=== PATIENT | female | born 1995 | race Caucasian/White ===

== ENCOUNTER 2021-01-03 13:47 | Emergency (ER) | payer MEDICAID ==
[~2021-01-03] VITALS: Ht 177.8 cm; Wt 75.0 kg
--- NOTE | 2021-01-03 14:49 | ED Abdominal Pain ---
General Chief Complaint: Abdominal/GI Problems Stated Complaint: ABD PAIN Source of Information: Patient, Family () Exam Limitations: No Limitations (LEESA MURPHY STUDENT) History of Present Illness Date Seen by Provider: Jan 03, 2021 Time Seen by Provider: 14:20 Initial Comments Pt presents to ED with at bedside with complaint of abd pain. They report moving to the area a month ago. She states that it began 2 weeks ago, rates it 10/10 periumbilical, denies radiation, alleviated by massages by her . Denies prior similar episodes of abd pain. She states she was seen at a clinic 2 weeks ago when the symptoms started, at the time urine was negative. LMP was about 2 months ago in late October. vaginal delivery, and she reports having D&C after delivery due to retained placenta. She has had i ntermittent nausea, no vomiting, and reports an episode of blood streaked loose stool yesterday. Denies chest pain, SOB. Timing/Duration: Getting Worse, Other (2 weeks) Severity/Quality: Moderate, Cramping Location: Periumbilical Radiation: No Radiation Activities at Onset: None Associated Symptoms: No Chest Pain, No Fever/Chills; Headache, Nausea/Vomiting; No Shortness of Air (LEESA MURPHY STUDENT) Allergies and Home Medications Allergies Coded Allergies: No Known Drug Allergies (Unverified , 01/03/21) Patient Home Medication List Home Medication List Reviewed: Yes (LEESA MURPHY STUDENT) Review of Systems Review of Systems Constitutional: No chills, No fever EENTM: No Blurred Vision, No Eye Pain, No Ear Pain, No Mouth Pain Respiratory: Denies Cough, Denies Shortness of Air Cardiovascular: Denies Chest Pain, Denies Edema, Denies Lightheadedness Gastrointestinal: Denies Abdomen Distended; Abdominal Pain (10/10 periumbilical), Blood Streaked Stools (1x episode yesterday); Denies Constipated; Diarrhea, Nausea; Denies Poor Appetite Genitourinary: Denies Burning, Denies Frequency, Denies Hematuria Musculoskeletal: No back pain, No joint pain Skin: No change in color, No change in hair/nails Psychiatric/Neurological: Headache; Denies Numbness, Denies Paresthesia, Denies Tingling (LEESA MURPHY STUDENT) All Other Systems Reviewed Negative Unless Noted: Yes (LEESA MURPHY STUDENT) Past Dllfofi-Zuxyur-Ilmcqh Hx Patient Social History Tobacco Use?: No Substance use?: No Alcohol Use?: No (LEESA MURPHY STUDENT) Physical Exam Vital Signs Vital Signs - First Documented 01/03/21 14:10 Temp 36.7 Pulse 83 Resp 16 B/P (MAP) 114/72 (86) Pulse Ox 99 O2 Delivery Room Air (ANTON GERMAIN) Vital Signs Capillary Refill : (LEESA MURPHY STUDENT) Height/Weight/BMI Height: '" Weight: lbs. oz. kg; BMI Method: General Appearance: WD/WN, no apparent distress HEENT: PERRL/EOMI, normal ENT inspection, TMs normal, pharynx normal Neck: non-tender, full range of motion, supple, normal inspection Respiratory: chest non-tender, lungs clear, normal breath sounds, no res piratory distress, no accessory muscle use Cardiovascular: normal peripheral pulses, regular rate, rhythm, no murmur Peripheral Pulses: 2+ Dorsalis Pedis (R), 2+ Left Dors-Pedis (L) Gastrointestinal: normal bowel sounds, soft; No distended, No guarding, No rebound; tenderness (mild tenderness to deep palpation periumbilical) Rectal: deferred Extremities: normal range of motion, non-tender, normal inspection, no pedal edema, normal capillary refill Back: normal inspection, no CVA tenderness, no vertebral tenderness Neurologic/Psychiatric: no motor/sensory deficits, alert, normal mood/affect, oriented x 3 Skin: normal color, warm/dry Lymphatic: no adenopathy (LEESA MURPHY STUDENT) Progress/Results/Core Measures Results/Orders Lab Results Laboratory Tests Test 01/03/21 15:09 Range/Units White Blood Count 7.3 4.3-11.0 10^3/uL Red Blood Count 4.50 3.80-5.11 10^6/uL Hemoglobin 10.6 L 11.5-16.0 g/dL Hematocrit 34 L 35-52 % Mean Corpuscular Volume 76 L 80-99 fL Mean Corpuscular Hemoglobin 24 L 25-34 pg Mean Corpuscular Hemoglobin Concent 31 L 32-36 g/dL Red Cell Distribution Width 15.4 H 10.0-14.5 % Platelet Count 324 130-400 10^3/uL Mean Platelet Volume 10.2 9.0-12.2 fL Immature Granulocyte % (Auto) 0 % Neutrophils (%) (Auto) 62 42-75 % Lymphocytes (%) (Auto) 28 12-44 % Monocytes (%) (Auto) 8 0-12 % Eosinophils (%) (Auto) 1 0-10 % Basophils (%) (Auto) 1 0-10 % Neutrophils # (Auto) 4.5 1.8-7.8 X 10^3 Lymphocytes # (Auto) 2.0 1.0-4.0 X 10^3 Monocytes # (Auto) 0.6 0.0-1.0 X 10^3 Eosinophils # (Auto) 0.1 0.0-0.3 10^3/uL Basophils # (Auto) 0.0 0.0-0.1 10^3/uL Immature Granulocyte # (Auto) 0.0 0.0-0.1 10^3/uL Sodium Level 142 135-145 MMOL/L Potassium Level 3.6 3.6-5.0 MMOL/L Chloride Level 107 98-107 MMOL/L Carbon Dioxide Level 22 21-32 MMOL/L Anion Gap 13 5-14 MMOL/L Blood Urea Nitrogen 7 7-18 MG/DL Creatinine 0.84 0.60-1.30 MG/DL Estimat Glomerular Filtration Rate 84 BUN/Creatinine Ratio 8 Glucose Level 96 70-105 MG/DL Calcium Level 9.2 8.5-10.1 MG/DL Corrected Calcium 9.0 8.5-10.1 MG/DL Total Bilirubin 0.4 0.1-1.0 MG/DL Aspartate Amino Transf (AST/SGOT) 20 5-34 U/L Alanine Aminotransferase (ALT/SGPT) 18 0-55 U/L Alkaline Phosphatase 68 40-136 U/L C-Reactive Protein High Sensitivity 0.56 H 0.00-0.50 MG/DL Total Protein 8.1 6.4-8.2 GM/DL Albumin 4.3 3.2-4.5 GM/DL Lipase 13 8-78 U/L Serum Test, Qualitative NEGATIVE NEGATIVE Influenza Type A (RT-PCR) Not Detected Not Detecte Influenza Type B (RT-PCR) Not Detected Not Detecte SARS-CoV-2 RNA (RT-PCR) Not Detected Not Detecte (ANTON GERMAIN) My Orders Orders - ANTON GERMAIN Ua Culture If Indicated (01/03/21 14:21) Hcg,Qualitative Serum (01/03/21 14:45) Cbc With Automated Diff (01/03/21 14:45) Comprehensive Metabolic Panel (01/03/21 14:45) Hs C Reactive Protein (01/03/21 14:45) Lipase (01/03/21 14:45) Ed Iv/Invasive Line Start (01/03/21 14:57) Ns Iv 1000 Ml (Sodium Chloride 0.9%) (01/03/21 15:00) Lidocaine 2% Viscous 15 Ml (Xylocaine Vi (01/03/21 15:00) Famotidine Tablet (Pepcid Tablet) (01/03/21 14:57) Antacid Suspension (Mylanta Suspension (01/03/21 15:00) Covid 19 Inhouse Test (01/03/21 14:57) Influenza A And B By Pcr (01/03/21 14:57) (ANTON GERMAIN) Medications Given in ED Current Medications Medications Dose Ordered Sig/Theresa Route Start Time Stop Time Status Last Admin Dose Admin Al Hydrox/Mg Hydrox/Simethicone 30 ml ONCE ONCE PO 01/03/21 15:00 01/03/21 15:01 DC 01/03/21 15:15 30 ML Lidocaine HCl 15 ml ONCE ONCE PO 01/03/21 15:00 01/03/21 15:01 DC 01/03/21 15:15 15 ML (ANTON GERMAIN) Vital Signs/I&O 01/03/21 14:10 Temp 36.7 Pulse 83 Resp 16 B/P (MAP) 114/72 (86) Pulse Ox 99 O2 Delivery Room Air (ANTON GERMAIN) Progress Progress Note : Time: 16:09 Progress Note I attest that I saw this patient alongside the medical student and agree with his documented history, physical exam and review of systems except as otherwise noted. We discussed her labs and pertinent negatives for inflammatory findings, Covid with the patient. She was given a GI cocktail and Pepcid which brought her pain down from a 10 to a 5 and she is comfortable, calm and smiling in bed. We suggest that she follow-up with a primary care doctor and pursue a course of a ntigastritis medicines including Carafate, omeprazole and loperamide for the diarrhea. She may have some kind of an irritable or inflammatory bowel. Because of her ongoing abdominal discomfort I suggested that an ultrasound of her pelvis may be [place] as well and can be set up with your primary care doctor. We will give her a referral to general surgery to discuss her umbilical pain and gastritis. The patient is okay with this plan. Return precautions were discussed. (ANTON GERMAIN) Departure Impression Primary Impression: Gastritis Qualified Codes: K29.00 - Acute gastritis without bleeding Disposition: HOME, SELF-CARE Condition: Stable Departure-Patient Inst. Decision time for Depature: 16:09 (ANTON GERMAIN) Referrals: JAZ BOLAÑOS MD,LOCAL PHYSICIAN (PCP) Primary Care Physician Patient Instructions: Gastritis (DC), LOCAL PHYSICIAN LIST Add. Discharge Instructions: Since you had improvement with the medications that target the lining of your stomach were going to put you on these medicines for the next couple weeks to help improve your abdominal pain. Carafate half an hour before meals and at bedtime for the next 2 weeks to prot ect the lining of your stomach. Omeprazole 40 mg a day for the next 4 weeks to reduce the acid levels in your stomach. Maalox, Mylanta, Tums, Rolaids etc. as necessary for breakthrough pain in your stomach. Call Dr. Bolaños, general surgery and request a follow-up appointment in the next 2 to 4 weeks to see if you need further management of your symptoms such as endoscopy, testing for H. pylori etc. Follow-up with a primary care doctor and establish care to help manage your symptoms. Imodium/loperamide 2 tablets the next time you have loose, watery diarrhea. Take 1 tablet every 4 hours afterwards if you have another loose, watery stool. Return to the ER promptly if you have a fever above 102.5, intractable pain, vomiting or you become very dehydrated. Tylenol and simethicone are okay for abdominal pain. Avoid ibuprofen, Aleve, naproxen, Motrin for now. These may slow the healing of your stomach lining. If you have nausea or vomiting you can use the ondansetron under the tongue once every 6 hours. All discharge instructions reviewed with patient and/or family. Voiced understanding. Scripts Omeprazole (Omeprazole) 40 Mg Capsule. 40 MG PO DAILY for 30 Days, #30 CAP 0 Refills Prov: ANTON GERMAIN 01/03/21 Sucralfate (Carafate) 1 Gm Tablet 1 GM PO QIDACHS for 14 Days, #56 TAB 0 Refills Prov: ANTON GERMAIN 01/03/21 Ondansetron (Ondansetron Odt) 4 Mg Tab.rapdis 4 MG PO Q6H PRN for NAUSEA/VOMITING, #8 TAB 0 Refills Prov: ANTON GERMAIN 01/03/21 Copy Copies To 1: JAZ BOLAÑOS MD,[facility] MED STUDENT Jan 03, 2021 14:49 ANTON GERMAIN Jan 03, 2021 16:15
[2021-01-03] MEDS ORDERED: FAMOTIDINE 20 MG (PEPCID) TABLET PO STA (14:57)
[2021-01-03] MEDS ORDERED: LIDOCAINE 2% VISCOUS 15 ML UDC PO ONE (15:00)
[2021-01-03] MEDS ORDERED: ANTACID SUSP 30 ML UDC (MYLANTA) PO ONE (15:00)
[2021-01-03] MEDS ORDERED: NS IV 1000 ML 1,000 ML IV SCH (15:00)
[2021-01-03 15:16] LABS: BASOPHILS % (AUTO) 1 % (0-10); EOSINOPHILS # (AUTO) 0.1 10^3/uL (0.0-0.3); EOSINOPHILS % (AUTO) 1 % (0-10); HEMATOCRIT 34 % (35-52); HEMOGLOBIN 10.6 g/dL (11.5-16.0); LYMPHOCYTES % (AUTO) 28 % (12-44); MEAN CORPUSCULAR HEMOGLOBIN 24 pg (25-34); MEAN CORPUSCULAR HGB CONC 31 g/dL (32-36); MEAN CORPUSCULAR VOLUME 76 fL (80-99); MEAN PLATELET VOLUME 10.2 fL (9.0-12.2); MONOCYTES # (AUTO) 0.6 X 10^3 (0.0-1.0); MONOCYTES % (AUTO) 8 % (0-12); NEUTROPHILS # (AUTO) 4.5 X 10^3 (1.8-7.8); NEUTROPHILS % (AUTO) 62 % (42-75); PLATELET COUNT 324 10^3/uL (130-400); WHITE BLOOD COUNT 7.3 10^3/uL (4.3-11.0)
[2021-01-03 15:26] LABS: ALBUMIN 4.3 GM/DL (3.2-4.5); POTASSIUM 3.6 MMOL/L (3.6-5.0)
[2021-01-03 15:27] LABS: CALCIUM 9.2 MG/DL (8.5-10.1)
[2021-01-03 15:29] LABS: TOTAL PROTEIN 8.1 GM/DL (6.4-8.2)
[2021-01-03 15:30] LABS: BILIRUBIN,TOTAL 0.4 MG/DL (0.1-1.0)
[2021-01-03 15:32] LABS: CREATININE SERUM 0.84 MG/DL (0.60-1.30)
[2021-01-03] MEDS ORDERED: SUCR1TAB36 PO (16:17)
[2021-01-03] MEDS ORDERED: ONDA4TAB11 PO (16:17)
[2021-01-03] MEDS ORDERED: OMEP40CA6 PO (16:17)
[2021-01-03 16:31] VITALS: BP 102/62
== END 2021-01-03 16:25 | disposition home or self-care (01) ==
LOC: ER 13:50
DX: K29.70 Gastritis, unspecified, without bleeding (principal); Z20.822 Contact with and (suspected) exposure to COVID-19; Z32.02 Encounter for pregnancy test, result negative
CPT/HCPCS: 36415; 80053; 83690; 84703; 85025; 86141; 87636

== ENCOUNTER → 2021-01-12 | Outpatient (CLI) | payer MEDICAID ==
[~2021-01-12] MED LIST: OMEP40CA6 PO; ONDA4TAB11 PO; SUCR1TAB36 PO
--- NOTE | 2021-01-12 11:25 | Diagnostic Imaging Report ---
EXAMINATION: Abdomen 1 view. HISTORY: ABDOMINAL PAIN COMPARISON: None available. FINDINGS: There is a moderate amount of gas and stool throughout the colon. Nonobstructive bowel gas pattern. No radiopaque foreign body. The lung bases are clear. The osseous structures are intact. IMPRESSION: Moderate stool burden without other acute abnormality in the abdomen. Dictated by: Dictated on workstation # [id number]
== END ==
LOC: RAD
PROVIDERS: ATTEND Nurse Practitioner Family
DX: R10.9 Unspecified abdominal pain (principal)
CPT/HCPCS: 74018

== ENCOUNTER → 2021-01-28 | Outpatient (CLI) | payer MEDICAID ==
[~2021-01-28] MED LIST changes: +HOLD METFORMIN - RECEIVED CONTRAST 20 ML VIAL IV SCH; +IOHEXOL 350 MG/ML 100 ML (OMNIPAQUE 350) VIAL IV ONE; +NS 100 ML (IVPB) BAG IV ONE
--- NOTE | 2021-01-28 15:25 | Diagnostic Imaging Report ---
PROCEDURE: CT abdomen and pelvis with contrast. TECHNIQUE: Multiple contiguous axial images were obtained through the abdomen and pelvis after administration of intravenous contrast. Auto Exposure Controls were utilized during the CT exam to meet ALARA standards for radiation dose reduction. All CT scans use one or more of the following dose optimizing techniques: automated exposure control, MA and/or KvP adjustment based on patient size and exam type or iterative reconstruction. INDICATION: Abdominal pain for three months. COMPARISON: No prior studies are available for comparison. FINDINGS: The lung bases are clear. The liver and gallbladder are unremarkable. There is no biliary ductal dilatation. The pancreas and spleen are unremarkable. No adrenal mass is detected. Kidneys are unremarkable. Aorta is nonaneurysmal. The small and large bowel loops are normal in caliber. There is no obstruction. No free fluid or fluid collection is seen. The bladder and uterus are unremarkable. No inflammatory changes are detected. IMPRESSION: Unremarkable CT of the abdomen and pelvis with contrast. No acute feature is detected. Dictated by: Dictated on workstation # [id number]
== END ==
LOC: RAD 13:15
PROVIDERS: ATTEND Surgery
DX: R10.9 Unspecified abdominal pain (principal)
CPT/HCPCS: 74177

== ENCOUNTER 2021-03-05 20:58 | Emergency (ER) | payer MEDICAID ==
[~2021-03-05] VITALS: Ht 70 cm; Wt 83.0 kg
[~2021-03-05 20:58] MED LIST changes: -HOLD METFORMIN - RECEIVED CONTRAST 20 ML VIAL IV SCH; -IOHEXOL 350 MG/ML 100 ML (OMNIPAQUE 350) VIAL IV ONE; -NS 100 ML (IVPB) BAG IV ONE
--- NOTE | 2021-03-05 21:27 | ED Headache ---
General Chief Complaint: Head/Cervical Problems Stated Complaint: HEADACHE Nursing Triage Note: Pt arrives via POV from home with c/o headache; onset one week. Pt reports nausea without vomiting. Has been taking tylenol without relief. Source: patient Exam Limitations: no limitations History of Present Illness Date Seen by Provider: Mar 05, 2021 Time Seen by Provider: 21:24 Initial Comments Patient is a 25-year-old female presents ED with a frontal headache. Head pain since last week. Appears to be worse with looking at her phone or bright lights. She reports nausea without vomiting. Denies history of similar headaches in the past. Patient took Tylenol at home without much improvement. Denies of any visual changes, unilateral muscle weakness. Increasing worsening head pain, recent URI, fever, drug use. Patient would like to be checked for . Last menstrual cycle last month. Patient requesting IV medication at this time. Denies of any abdominal pain, vaginal bleeding, dysuria, chest pain, cough Allergies and Home Medications Allergies Coded Allergies: No Known Drug Allergies (Unverified , 01/03/21) Patient Home Medication List Home Medication List Reviewed: Yes Omeprazole (Omeprazole) 40 Mg Capsule.dr, 40 MG PO DAILY Prescribed by: ANTON GERMAIN on 01/03/211616 Ondansetron (Ondansetron Odt) 4 Mg Tab.rapdis, 4 MG PO Q6H PRN for NAUSEA/VOMITING Prescribed by: ANTON GERMAIN on 01/03/211616 Sucralfate (Carafate) 1 Gm Tablet, 1 GM PO QIDACHS Prescribed by: ANTON GERMAIN on 01/03/211616 Review of Systems Review of Systems Constitutional: no symptoms reported, see HPI Eyes: No Symptoms Reported, See HPI, Photophobia Ears, Nose, Mouth, Throat: no symptoms reported Respiratory: No cough, No dyspnea on exertion Cardiovascular: no symptoms reported Gastrointestinal: No abdominal pain, No constipation, No diarrhea Genitourinary: see HPI Musculoskeletal: No no symptoms reported Psychiatric/Neurological: Headache Past Ggocazy-Zyneax-Kwmxui Hx Patient Social History Tobacco Use?: No Smoking Status: Never a Smoker Use of E-Cig and/or Vaping dev: No Use of E-Cig and/or Vaping Mike: Never a User Substance use?: No Alcohol Use?: No Pt feels they are or have been: No Physical Exam Vital Signs Vital Signs - First Documented 03/05/21 21:11 Temp 36.3 Pulse 72 Resp 18 B/P (MAP) 115/41 (65) Pulse Ox 100 O2 Delivery Room Air Capillary Refill : Less Than 3 Seconds Height, Weight, BMI Height: '" Weight: lbs. oz. kg; 169.00 BMI Method: General Appearance: No WD/WN, No no apparent distress HEENT: PERRL/EOMI, normal ENT inspection, TMs normal, pharynx normal Neck: non-tender, full range of motion, supple, normal inspection Cardiovascular: regular rate, rhythm, no edema, no gallop, no JVD Respiratory: chest non-tender, lungs clear, normal breath sounds, no respiratory distress Gastrointestinal: normal bowel sounds, non tender Extremities: normal range of motion, non-tender, normal inspection Crainal Nerves: normal speech Coordination/Gait: normal gait Motor/Sensory: no motor deficit, no sensory deficit Skin: normal color, warm/dry Progress/Results/Core Measures Results/Orders Lab Results Laboratory Tests Test 03/05/21 22:13 Range/Units Urine Test POSITIVE NEGATIVE My Orders Orders - KRYSTA JARRELL Ua Culture If Indicated (03/05/21 21:21) Hcg,Qualitative Urine (03/05/21 21:21) Prochlorperazine Injection (Compazine In (03/05/21 21:30) Ketorolac Injection (Toradol Injection) (03/05/21 21:30) Diphenhydramine Injection (Benadryl Inje (03/05/21 21:30) Ns Iv 1000 Ml (Sodium Chloride 0.9%) (03/05/21 21:30) Ed Iv/Invasive Line Start (03/05/21 21:43) Diphenhydramine Injection (Benadryl Inje (03/05/21 22:00) Medications Given in ED Current Medications Medications Dose Ordered Sig/Theresa Route Start Time Stop Time Status Last Admin Dose Admin Diphenhydramine HCl 25 mg ONCE ONCE IVP 03/05/21 22:00 03/05/21 22:01 DC 03/05/21 21:56 25 MG Ketorolac Tromethamine 30 mg ONCE ONCE IVP 03/05/21 21:30 03/05/21 21:31 DC 03/05/21 21:47 30 MG Prochlorperazine Edisylate 10 mg ONCE ONCE IV 03/05/21 21:30 03/05/21 21:31 DC 03/05/21 21:47 10 MG Vital Signs/I&O 03/05/21 21:11 Temp 36.3 Pulse 72 Resp 18 B/P (MAP) 115/41 (65) Pulse Ox 100 O2 Delivery Room Air Blood Pressure Mean: 65 Departure Communication (Admissions) Patient presents ED with head pain. Frontal headache without worsening pain. Appears to occur with lights. Patient without any red flag neurological findings. Vital signs stable. She has no current complaints. Patient was given IV with migraine cocktail with resolution of pain. She was requesting test. Last menstrual cycle possibly last week. Positive urine . She would be considered G2, P1. She has no abdominal pain, vaginal bleeding. Denies any urinary symptoms. Recommend RECOVERY OPERATOR outpatient follow-up. Recommend Tylenol and care. If any developing abdominal pain, vaginal bleeding to return back to ED for further evaluation Impression Primary Impression: Headache Additional Impression: Disposition: 01 HOME, SELF-CARE Condition: Improved Departure-Patient Inst. Decision time for Depature: 22:29 Referrals: STEPHANIE CHARLES,LOCAL PHYSICIAN (PCP) Primary Care Physician Patient Instructions: Headache, Adult, Care Add. Discharge Instructions: Recommend prenatals. Need to follow-up with RECOVERY OPERATOR for verification and further lab work. If any developing abdominal pain, vaginal bleeding to return back to ED. All discharge instructions reviewed with patient and/or family. Voiced understanding. KRYSTA JARRELL Mar 05, 2021 21:27
[2021-03-05] MEDS ORDERED: KETOROLAC 30 MG/ML VIAL IVP ONE (21:30)
[2021-03-05] MEDS ORDERED: NS IV 1000 ML 1,000 ML IV SCH (21:30)
[2021-03-05] MEDS ORDERED: PROCHLORPERAZINE 10 MG/2ML INJ (COMPAZINE) IV ONE (21:30)
[2021-03-05] MEDS ORDERED: diphenhydrAMINE 50 MG/ML INJ (BENADRYL) IM ONE (21:30)
[2021-03-05] MEDS ORDERED: diphenhydrAMINE 50 MG/ML INJ (BENADRYL) IVP ONE (22:00)
[2021-03-05 22:39] VITALS: BP 118/52
== END 2021-03-05 22:41 | disposition home or self-care (01) ==
LOC: EDUNIT# 20:58 → ER 21:03
DX: Z32.01 Encounter for pregnancy test, result positive (principal); R51.9 Headache, unspecified
CPT/HCPCS: 84703

== ENCOUNTER 2021-03-13 11:06 | Emergency (ER) | payer MEDICAID ==
[~2021-03-13] VITALS: Ht 177 cm; Wt 70.7 kg
[2021-03-13] MEDS ORDERED: NS IV 1000 ML 1,000 ML IV SCH ×2 (11:30→13:00)
--- NOTE | 2021-03-13 11:40 | ED General ---
General Chief Complaint: Abdominal/GI Problems Stated Complaint: NV 5 WEEKS PREG Nursing Triage Note: Pt ambulatory to ER, reports approx 5 weeks , second . Pt reports found out she was approx 1 week ago, c/o n/v since then. Pt believes she may be dehydrated. (RHIANNON BYRNES) History of Present Illness Date Seen by Provider: Mar 13, 2021 Time Seen by Provider: 11:31 Initial Comments 25 Y/O female presents to the ER with complaints of N/V that have been going on for the past week. Patient states that she hasn't been able to keep down fluids or food very well for the past week. States she probably had an apple in the past 3 days and that she feels very weak. Patient has established care with Dr. Briseno for this but has not seen her yet. She was at Dr. Briseno's office earlier today to get her initial lab draw done and the office told her to come to the ER if she felt like she needed fluids. Patient states that smelling food, drinking fluid, or moving too much make her nausea worse. She reports dizziness when going from a lying to standing to position. She hasn't tried anything yet to make it better, but that when she got fluids last week it made her feel much better. Patient states she feels weak and is requesting fluids as she had this happen during her first . Her first born child is 10 months old. Patient denies abnormal vaginal discharge, bleeding, cramping, GI pain, SOB. Patient does state she is still having migraines intermittently and that when she has them she feels feverish. Timing/Duration: 1 Week Severity: Mild Modifying Factors: improves with Eating, improves with Movement Associated Systoms: No Cough; Headaches, Nausea/Vomiting; No Shortness of Air; Weakness (RHIANNON BYRNES) Allergies and Home Medications Allergies Coded Allergies: No Known Drug Allergies (Unverified , 01/03/21) Patient Home Medication List Home Medication List Reviewed: Yes (CHARY YI MD) Cephalexin (Cephalexin) 500 Mg Tablet, 500 MG PO TID Prescribed by: CHARY YI on 03/13/21 1418 Omeprazole (Omeprazole) 40 Mg Capsule., 40 MG PO DAILY Prescribed by: ANTON GERMAIN on 8/14/21 1617 Ondansetron (Ondansetron Odt) 4 Mg Tab.rapdis, 4 MG PO Q6H PRN for NAUSEA/VOMITING Prescribed by: ANTON GERMAIN on 01/03/211616 Sucralfate (Carafate) 1 Gm Tablet, 1 GM PO QIDACHS Prescribed by: ANTON GERMAIN on 01/03/211616 Review of Systems Review of Systems Constitutional: fever (when having migraine) Respiratory: No cough, No short of breath Cardiovascular: No chest pain, No palpitations Gastrointestinal: No abdominal pain, No constipation, No diarrhea; loss of appetite, nausea, vomiting Genitourinary: No decreased output, No discharge, No dysuria : Yes Musculoskeletal: no symptoms reported Skin: no symptoms reported Psychiatric/Neurological: Headache (migraine) (RHIANNON BYRNES) Past Cyqnzvc-Hxbsat-Iuubhs Hx Patient Social History Tobacco Use?: No Use of E-Cig and/or Vaping dev: No Substance use?: No Alcohol Use?: No Pt feels they are or have been: No (RHIANNON BYRNES) Past Medical History Neurological: Yes Headaches /Migraines Last Menstrual Period: Jan 31, 2021 Hx : 2 Hx Para: 1 (RHIANNON BYRNES) Physical Exam Vital Signs Vital Signs - First Documented 03/13/21 11:13 Temp 36.0 Pulse 63 Resp 18 B/P (MAP) 115/70 (85) Pulse Ox 100 O2 Delivery Room Air (CHARY YI MD) Vital Signs Capillary Refill : (RHIANNON BYRNES) Height, Weight, BMI Height: '" Weight: lbs. oz. kg; 22.00 BMI Method: General Appearance: WD/WN, Anxious Neck: Normal Inspection, Supple Respiratory: Chest Non Tender, Lungs Clear, Normal Breath Sounds, No Accessory Muscle Use, No Respiratory Distress Cardiovascular: Regular Rate, Rhythm, No Gallop, No Murmur Gastrointestinal: No Organomegaly, No Pulsatile Mass, Non Tender, Soft Rectal: Deferred Neurologic/Psychiatric: Alert, Oriented x3, Normal Mood/Affect Skin: Normal Color, Warm/Dry (RHIANNON BYRNES) Progress/Results/Core Measures Suspected Sepsis SIRS Temperature: Pulse: 63 Respiratory Rate: 18 Blood Pressure 115 /70 Mean: 85 Laboratory Tests 03/13/21 11:39: Creatinine 0.71 (RHIANNON BYRNES) Results/Orders Lab Results Laboratory Tests Test 03/13/21 11:39 03/13/21 13:31 Range/Units Sodium Level 134 L 135-145 MMOL/L Potassium Level 3.6 3.6-5.0 MMOL/L Chloride Level 103 98-107 MMOL/L Carbon Dioxide Level 21 21-32 MMOL/L Anion Gap 10 5-14 MMOL/L Blood Urea Nitrogen 7 7-18 MG/DL Creatinine 0.71 0.60-1.30 MG/DL Estimat Glomerular Filtration Rate 102 BUN/Creatinine Ratio 10 Glucose Level 98 70-105 MG/DL Calcium Level 9.5 8.5-10.1 MG/DL Urine Color ORANGE Urine Clarity SL CLOUDY Urine pH 6.0 5-9 Urine Specific [place] >=1.030 1.016-1.022 Urine Protein 1+ H NEGATIVE Urine Glucose (UA) NEGATIVE NEGATIVE Urine Ketones 2+ H NEGATIVE Urine Nitrite NEGATIVE NEGATIVE Urine Bilirubin NEGATIVE NEGATIVE Urine Urobilinogen 1.0 < = 1.0 MG/DL Urine Leukocyte Esterase TRACE H NEGATIVE Urine RBC (Auto) 2+ H NEGATIVE Urine RBC 0-2 /HPF Urine WBC 50-100 H /HPF Urine Squamous Epithelial Cells 10-25 H /HPF Urine Crystals NONE /LPF Urine Bacteria MODERATE H /HPF Urine Casts NONE /LPF Urine Mucus SMALL H /LPF Urine Culture Indicated YES (CHARY YI MD) Micro Results Microbiology 03/13/21 Urine Culture - Final, Complete Gram Pos Mixed Bacterial Sallie (CHARY YI MD) My Orders Orders - CHARY YI MD Basic Metabolic Panel (03/13/21 11:29) Ed Iv/Invasive Line Start (03/13/21 11:29) Ua Culture If Indicated (03/13/21 11:29) Urine Bedside (03/13/21 11:29) Ns Iv 1000 Ml (Sodium Chloride 0.9%) (03/13/21 11:30) Metoclopramide Injection (Reglan Injecti (03/13/21 11:45) Diphenhydramine Injection (Benadryl Inje (03/13/21 11:45) Ns Iv 1000 Ml (Sodium Chloride 0.9%) (03/13/21 12:36) Ns Iv 1000 Ml (Sodium Chloride 0.9%) (03/13/21 13:00) Urine Culture (03/13/21 13:31) (CHARY YI MD) Medications Given in ED (CHARY YI MD) Vital Signs/I&O 03/13/21 03/13/21 03/13/21 03/13/21 11:13 11:46 12:05 12:57 Temp 36.0 Pulse 63 67 60 58 Resp 18 16 B/P (MAP) 115/70 (85) 113/49 90/48 92/47 Pulse Ox 100 100 100 100 O2 Delivery Room Air Room Air Room Air Room Air 03/13/21 03/13/21 03/13/21 13:21 13:37 14:35 Pulse 57 60 63 Resp 18 18 18 B/P (MAP) 89/44 104/50 106/58 Pulse Ox 100 100 63 O2 Delivery Room Air Room Air Room Air (CHARY YI MD) Vital Signs/I&O Capillary Refill : (RHIANNON BYRNES) Blood Pressure Mean: 85 Progress Note : Progress Note Patient given 1L NS and a combination of Reglan and Benadryl for her headache. Patient was sleeping for a brief period before able to give us a urine sample. She did sip on some water and hold it down. States she does feel better. (RHIANNON BYRNES) Progress Note : Time: 14:16 Progress Note Patient states she is feeling much better after 2 L of fluid. Urine is back and shows evidence of likely skin contamination, will flagged for culture however in light of status will go ahead and put her on some Keflex. Culture is pending. Patient states that she feels a little bit better upon discharge. She states she feels "a little dizzy". Headache is improved. I have encouraged her to eat small frequent meals throughout the day. B6 and Unisom encouraged for nausea. All questions are sought and answered. Patient is given good return precautions and also advised to follow-up with Dr. Briseno. (CHARY YI MD) Departure Impression Primary Impression: Nausea/vomiting in Additional Impression: Urinary tract infection affecting care of mother in first trimester, antepartum Disposition: 01 HOME, SELF-CARE Condition: Improved Departure-Patient Inst. Decision time for Depature: 14:17 (CHARY YI MD) Referrals: OBED BRISENO DO (PCP/Family) Primary Care Physician Patient Instructions: Morning Sickness ED, Urinary Tract Infection, Adult ED Add. Discharge Instructions: Drink plenty of fluids to stay well-hydrated. Take [id number]-[id number] B6 vitamin as well as Unisom tablets as directed on the box for nausea. Please follow-up with Dr. Briseno as scheduled. I have sent a prescription for antibiotics for urinary tract infection to [facility] pharmacy for you. Please take these medications as directed and until they are gone. Come back to the emergency room for any persistent vomiting, inability to hold down medications or fluids or food or any other emergent concerning symptoms. . Scripts Cephalexin (Cephalexin) 500 Mg Tablet 500 MG PO TID, #15 TAB Prov: CHARY YI MD 03/13/21 Patient seen and examined by me. I have reviewed and agree with the medical students HPI, past medical family social history and review of systems. I agree with the documentation as provided. Patient is a 25-year-old first trimester patient with nausea and vomiting. Evidence of bacteriuria on urinalysis. Cultures pending. Likely this is contaminant from the amount of squamous epithelial cells however in light of her we will go ahead and treat. I have discussed all of the follow-up/return precautions with the patient who verbalized understanding. Home with B6 and Unisom. (CHARY YI MD) FITZRHIANNON Mar 13, 2021 11:40 CHARY YI MD Mar 13, 2021 14:19
[2021-03-13] MEDS ORDERED: METOCLOPRAMIDE INJ 10 MG/2 ML (REGLAN) IVP ONE (11:45)
[2021-03-13] MEDS ORDERED: diphenhydrAMINE 50 MG/ML INJ (BENADRYL) IV ONE (11:45)
[2021-03-13 11:57] LABS: POTASSIUM 3.6 MMOL/L (3.6-5.0)
[2021-03-13 11:58] LABS: CALCIUM 9.5 MG/DL (8.5-10.1)
[2021-03-13 12:03] LABS: CREATININE SERUM 0.71 MG/DL (0.60-1.30)
[2021-03-13] MEDS ORDERED: NS IV 1000 ML 1,000 ML ONE (12:36)
[2021-03-13 13:48] LABS: BILIRUBIN,URINE NEGATIVE (NEGATIVE); CLARITY,URINE SL CLOUDY; COLOR,URINE ORANGE; GLUCOSE, URINE (UA) NEGATIVE (NEGATIVE); KETONES,URINE 2+ (NEGATIVE); LEUKOCYTE ESTERASE ,URINE TRACE (NEGATIVE); NITRITE,URINE NEGATIVE (NEGATIVE); PROTEIN,URINE 1+ (NEGATIVE)
[2021-03-13 14:01] LABS: RBC,URINE 0-2 /HPF
[2021-03-13 14:02] LABS: BACTERIA,URINE MODERATE /HPF; WBC,URINE 50-100 /HPF
[2021-03-13] MEDS ORDERED: CEPH500T PO (14:18)
[2021-03-13 14:35] VITALS: BP 106/58
== END 2021-03-13 14:35 | disposition home or self-care (01) ==
LOC: EDUNIT# 11:06 → ER 11:11
DX: O21.0 Mild hyperemesis gravidarum (principal); O23.41 Unspecified infection of urinary tract in pregnancy, first trimester; Z3A.01 Less than 8 weeks gestation of pregnancy
CPT/HCPCS: 36415; 80048; 81000; 84703; 87088

== ENCOUNTER 2021-03-25 19:36 | Emergency (ER) | payer MEDICAID ==
[~2021-03-25] VITALS: Ht 178 cm; Wt 71.0 kg
[~2021-03-25 19:36] MED LIST changes: +CEPH500T PO
--- NOTE | 2021-03-25 19:55 | ED GU-Female ---
General Chief Complaint: Dizziness/Syncope Stated Complaint: WEAKNESS Source: patient Exam Limitations: no limitations History of Present Illness Date Seen by Provider: Mar 25, 2021 Time Seen by Provider: 19:52 Initial Comments Patient is a 25-year-old female who is 6 weeks who presents ED with dizziness, weakness, mid abdominal discomfort. She describes pain as cramping over the past week. She reports 5 episodes of vomiting daily for the past week. . Denies of any blood in her vomit, diarrhea, pain with urination, vaginal bleeding, vaginal discharge, chest pain, shortness of breath. Currently on iron supplementation secondary to history of iron deficiency. Patient appears in no acute distress. Patient was brought to the ED by EMS. Patient denies fever, diarrhea, chest pain, shortness of breath, cough, sore throat. Allergies and Home Medications Allergies Coded Allergies: No Known Drug Allergies (Unverified , 01/03/21) Patient Home Medication List Home Medication List Reviewed: Yes Cephalexin (Cephalexin) 500 Mg Tablet, 500 MG PO TID Prescribed by: CHARY YI on 03/13/21 1418 Metoclopramide HCl (Reglan) 10 Mg Tablet, 10 MG PO TID PRN for NAUSEA-1ST LINE Prescribed by: DEREJE CORONEL on 03/25/21 2213 Omeprazole (Omeprazole) 40 Mg Capsule.dr, 40 MG PO DAILY Prescribed by: ANTON GERMAIN on 01/03/21 161 Ondansetron (Ondansetron Odt) 4 Mg Tab.rapdis, 4 MG PO Q6H PRN for NAUSEA/VOMITING Prescribed by: ANTON GERMAIN on 01/03/21 161 Sucralfate (Carafate) 1 Gm Tablet, 1 GM PO QIDACHS Prescribed by: ANTON GERMAIN on 01/03/21 1617 Review of Systems Review of Systems Constitutional: No chills, No diaphoresis, No fever, No malaise EENTM: No no symptoms reported, No ear discharge Respiratory: No cough, No dyspnea on exertion Cardiovascular: No see HPI, No chest pain Gastrointestinal: abdominal pain; No constipation, No diarrhea; nausea, vomiting Genitourinary: denies burning, denies frequency, denies flank pain Musculoskeletal: No back pain, No gout, No joint swelling, No muscle pain Skin: No change in color, No change in hair/nails Past Arlgwke-Milxdk-Hbbyzf Hx Past Medical History Neurological: Yes Headaches /Migraines Physical Exam Vital Signs Vital Signs - First Documented 03/25/21 19:36 Temp 36.3 Pulse 73 Resp 18 B/P (MAP) 102/61 (75) Pulse Ox 99 O2 Delivery Room Air Capillary Refill : Height, Weight, BMI Height: '" Weight: lbs. oz. kg; 22.00 BMI Method: General Appearance: WD/WN, no apparent distress HEENT: PERRL/EOMI, normal ENT inspection, TMs normal, pharynx normal Cardiovascular: regular rate, rhythm, no edema, no gallop Respiratory: chest non-tender, lungs clear, normal breath sounds, no respiratory distress Gastrointestinal: normal bowel sounds, non tender, soft, tenderness (Mid abdominal tenderness on palpation.) Pelvic: normal external exam, normal adnexa, no cerv. motion tender Back: normal inspection, no CVA tenderness, no vertebral tenderness Skin: normal color, warm/dry Progress/Results/Core Measures Suspected Sepsis SIRS Temperature: Pulse: Respiratory Rate: Laboratory Tests 03/25/21 19:40: White Blood Count 7.0 Blood Pressure / Mean: Laboratory Tests 03/25/21 19:40: Creatinine 0.68, Platelet Count 291, Total Bilirubin 0.6 Results/Orders Lab Results Laboratory Tests Test 03/25/21 19:40 03/25/21 20:22 Range/Units White Blood Count 7.0 4.3-11.0 10^3/uL Red Blood Count 4.41 3.80-5.11 10^6/uL Hemoglobin 10.9 L 11.5-16.0 g/dL Hematocrit 34 L 35-52 % Mean Corpuscular Volume 78 L 80-99 fL Mean Corpuscular Hemoglobin 25 25-34 pg Mean Corpuscular Hemoglobin Concent 32 32-36 g/dL Red Cell Distribution Width 14.6 H 10.0-14.5 % Platelet Count 291 130-400 10^3/uL Mean Platelet Volume 10.6 9.0-12.2 fL Immature Granulocyte % (Auto) 0 % Neutrophils (%) (Auto) 71 42-75 % Lymphocytes (%) (Auto) 20 12-44 % Monocytes (%) (Auto) 8 0-12 % Eosinophils (%) (Auto) 1 0-10 % Basophils (%) (Auto) 0 0-10 % Neutrophils # (Auto) 4.9 1.8-7.8 10^3/uL Lymphocytes # (Auto) 1.4 1.0-4.0 10^3/uL Monocytes # (Auto) 0.5 0.0-1.0 10^3/uL Eosinophils # (Auto) 0.1 0.0-0.3 10^3/uL Basophils # (Auto) 0.0 0.0-0.1 10^3/uL Immature Granulocyte # (Auto) 0.0 0.0-0.1 10^3/uL Sodium Level 136 135-145 MMOL/L Potassium Level 3.0 L 3.6-5.0 MMOL/L Chloride Level 104 98-107 MMOL/L Carbon Dioxide Level 20 L 21-32 MMOL/L Anion Gap 12 5-14 MMOL/L Blood Urea Nitrogen 6 L 7-18 MG/DL Creatinine 0.68 0.60-1.30 MG/DL Estimat Glomerular Filtration Rate 107 BUN/Creatinine Ratio 9 Glucose Level 112 H 70-105 MG/DL Calcium Level 9.3 8.5-10.1 MG/DL Corrected Calcium 9.0 8.5-10.1 MG/DL Total Bilirubin 0.6 0.1-1.0 MG/DL Aspartate Amino Transf (AST/SGOT) 17 5-34 U/L Alanine Aminotransferase (ALT/SGPT) 13 0-55 U/L Alkaline Phosphatase 52 40-136 U/L Total Protein 7.9 6.4-8.2 GM/DL Albumin 4.4 3.2-4.5 GM/DL Human Chorionic Gonadotropin, Quant [id number] H <5 MIU/ML Urine Color ORANGE Urine Clarity SL CLOUDY Urine pH 6.5 5-9 Urine Specific [place] 1.020 1.016-1.022 Urine Protein 1+ H NEGATIVE Urine Glucose (UA) TRACE H NEGATIVE Urine Ketones 3+ H NEGATIVE Urine Nitrite NEGATIVE NEGATIVE Urine Bilirubin 1+ H NEGATIVE Urine Urobilinogen 4.0 < = 1.0 MG/DL Urine Leukocyte Esterase NEGATIVE NEGATIVE Urine RBC (Auto) NEGATIVE NEGATIVE Urine RBC NONE /HPF Urine WBC NONE /HPF Urine Squamous Epithelial Cells 2-5 /HPF Urine Crystals NONE /LPF Urine Bacteria FEW H /HPF Urine Casts NONE /LPF Urine Mucus MODERATE H /LPF Urine Culture Indicated NO My Orders Orders - KRYSTA JARRELL Cbc With Automated Diff (03/25/21 19:49) Hcg,Quantitative (03/25/21 19:49) Ed Iv/Invasive Line Start (03/25/21 19:49) Comprehensive Metabolic Panel (03/25/21 19:49) Ns Iv 1000 Ml (Sodium Chloride 0.9%) (03/25/21 20:00) Metoclopramide Injection (Reglan Injecti (03/25/21 20:00) Ua Culture If Indicated (03/25/21 19:49) Potassium Cl 10meq/50ml Ivpb (Kcl 10 Meq (03/25/21 20:20) Potassium Chloride (Tablet) (K Dur Table (03/25/21 20:30) Us Ob Single Fetus<14 [id number] (03/25/21 20:38) Abo Rh Type (03/25/21 20:39) Ns Iv 1000 Ml (Sodium Chloride 0.9%) (03/25/21 21:32) Medications Given in ED Current Medications Medications Dose Ordered Sig/Theresa Route Start Time Stop Time Status Last Admin Dose Admin Metoclopramide HCl 10 mg ONCE ONCE IVP 03/25/21 20:00 03/25/21 20:01 DC 03/25/21 20:17 10 MG Potassium Chloride 40 meq ONCE ONCE PO 03/25/21 20:30 03/25/21 20:31 DC 03/25/21 20:37 40 MEQ Vital Signs/I&O 03/25/21 19:36 Temp 36.3 Pulse 73 Resp 18 B/P (MAP) 102/61 (75) Pulse Ox 99 O2 Delivery Room Air Capillary Refill : Departure Communication (Admissions) Patient presents ED with vomiting. Patient believes she is around 6 weeks . Mid abdominal discomfort the past week. Denies vaginal bleeding. Denies of any vaginal discharge or concern for sexual transmitted infection. Refused pelvic exam. Lab work shows hypokalemia 3.0. Was given oral potassium. Was given a liter of fluid. Vital signs stable. Patient was not tachycardic. Slightly hypotensive which improved after 2 L of fluid. Patient was given IV Reglan with improvement. Tolerating fluid at bedside. Ultrasound shows intrauterine cardiac activity noted and measuring 9 weeks. Discussed these results with patient. Recommend starting prenatals. Provided outpatient COURT SPECIALIST follow-up for reevaluation. Weakness and dizziness is likely secondary to vomiting, dehydration secondary to her . Discussed importance of hydration. No acute abdomen. Normal white blood count. Stable hemoglobin. Return precautions were discussed with patient. Patient beta quant near 100,000. Impression Primary Impression: Nausea/vomiting in Disposition: HOME, SELF-CARE Condition: Improved Departure-Patient Inst. Decision time for Depature: 22:09 Referrals: OBED BRISENO DO (PCP/Family) Primary Care Physician Patient Instructions: Nausea and Vomiting of Add. Discharge Instructions: Need to follow-up with your primary care physician or COURT SPECIALIST in the next 2 to 3 days. Recommend drinking plenty of fluids. Reglan as needed for nausea. All discharge instructions reviewed with patient and/or family. Voiced understanding. Scripts Metoclopramide HCl (Reglan) 10 Mg Tablet 10 MG PO TID PRN for NAUSEA-1ST LINE for 7 Days, #10 TAB Prov: KRYSTA JARRELL 03/25/21 KRYSTA JARRELL Mar 25, 2021 19:55
[2021-03-25 19:58] LABS: BASOPHILS % (AUTO) 0 % (0-10); EOSINOPHILS # (AUTO) 0.1 10^3/uL (0.0-0.3); EOSINOPHILS % (AUTO) 1 % (0-10); HEMATOCRIT 34 % (35-52); HEMOGLOBIN 10.9 g/dL (11.5-16.0); LYMPHOCYTES # (AUTO) 1.4 10^3/uL (1.0-4.0); LYMPHOCYTES % (AUTO) 20 % (12-44); MEAN CORPUSCULAR HEMOGLOBIN 25 pg (25-34); MEAN CORPUSCULAR HGB CONC 32 g/dL (32-36); MEAN CORPUSCULAR VOLUME 78 fL (80-99); MEAN PLATELET VOLUME 10.6 fL (9.0-12.2); MONOCYTES # (AUTO) 0.5 10^3/uL (0.0-1.0); MONOCYTES % (AUTO) 8 % (0-12); NEUTROPHILS # (AUTO) 4.9 10^3/uL (1.8-7.8); NEUTROPHILS % (AUTO) 71 % (42-75); PLATELET COUNT 291 10^3/uL (130-400)
[2021-03-25] MEDS ORDERED: METOCLOPRAMIDE INJ 10 MG/2 ML (REGLAN) IVP ONE (20:00)
[2021-03-25] MEDS ORDERED: NS IV 1000 ML 1,000 ML IV SCH (20:00)
[2021-03-25 20:12] LABS: ALBUMIN 4.4 GM/DL (3.2-4.5); BILIRUBIN,TOTAL 0.6 MG/DL (0.1-1.0); CALCIUM 9.3 MG/DL (8.5-10.1); CREATININE SERUM 0.68 MG/DL (0.60-1.30); TOTAL PROTEIN 7.9 GM/DL (6.4-8.2)
[2021-03-25] MEDS ORDERED: POTASSIUM CL 10MEQ/50ML IVPB 50 ML IV STA (20:20)
[2021-03-25] MEDS ORDERED: KCL 20 MEQ TAB (K-DUR) PO ONE (20:30)
[2021-03-25 20:54] LABS: CLARITY,URINE SL CLOUDY; COLOR,URINE ORANGE; GLUCOSE, URINE (UA) TRACE (NEGATIVE); KETONES,URINE 3+ (NEGATIVE); LEUKOCYTE ESTERASE ,URINE NEGATIVE (NEGATIVE); NITRITE,URINE NEGATIVE (NEGATIVE); PH,URINE 6.5 (5-9); PROTEIN,URINE 1+ (NEGATIVE)
[2021-03-25 21:06] LABS: BILIRUBIN,URINE 1+ (NEGATIVE)
[2021-03-25 21:07] LABS: BACTERIA,URINE FEW /HPF
[2021-03-25] MEDS ORDERED: NS IV 1000 ML 1,000 ML IV STA (21:32)
--- NOTE | 2021-03-25 21:45 | Diagnostic Imaging Report ---
PROCEDURE: US OB single fetus <14 wks. TECHNIQUE: Multiple real-time grayscale images were obtained over the gravid uterus in various projections. INDICATION: Vaginal bleeding. FINDINGS: There is a single intrauterine gestation with movement seen. heart rate is 169 beats per minute. Halls-rump length is 2.7 cm. This corresponds to a gestational age of 9 weeks 4 days. Subchorionic hemorrhage is present. There is a gestational sac measuring 3.1 x 3.7 cm. Corpus luteum cyst is in the right ovary. Right ovary is otherwise normal. Left ovary is not well seen due to overlying bowel gas. IMPRESSION: Single live intrauterine gestation measuring 9 weeks and 4 days with a heart rate of 169 bpm. Dictated by: Dictated on workstation # [id number]
[2021-03-25] MEDS ORDERED: METO-310 PO (22:13)
[2021-03-26 02:06] VITALS: BP 112/49
== END 2021-03-25 23:05 | disposition home or self-care (01) ==
LOC: EDUNIT# 19:36 → ER 19:37
DX: O21.0 Mild hyperemesis gravidarum (principal); Z3A.09 9 weeks gestation of pregnancy
CPT/HCPCS: 36415; 76801; 80053; 81000; 84702; 85025; 86900; 86901; 99283

== ENCOUNTER 2021-04-05 02:18 | Emergency (ER) | payer MEDICAID ==
[~2021-04-05] VITALS: Ht 178 cm; Wt 76.0 kg
[~2021-04-05 02:18] MED LIST changes: +METO-310 PO
[2021-04-05] MEDS ORDERED: FAMOTIDINE 20 MG (PEPCID) TABLET PO STA (02:29)
[2021-04-05] MEDS ORDERED: LIDOCAINE 2% VISCOUS 15 ML UDC PO ONE (02:30)
[2021-04-05] MEDS ORDERED: ANTACID SUSP 30 ML UDC (MYLANTA) PO ONE (02:30)
--- NOTE | 2021-04-05 02:36 | ED Abdominal Pain ---
General Stated Complaint: ABD PAIN,9 WKS PREG Source of Information: Patient Exam Limitations: No Limitations History of Present Illness Date Seen by Provider: Apr 05, 2021 Time Seen by Provider: 02:17 Initial Comments Patient presents to the ER by EMS from [place] and where she and her sister are staying with her significant other and child. She has a chief complaint of 8 out of 10 epigastric abdominal discomfort that is intermittent, sharp. She says it started after her began. She thinks she is 9 weeks along with an LMP of January 31. She has an ultrasound from 11 days ago putting her at 10 weeks and 3 days today. That showed intrauterine gestation. She is not having any nausea vomiting. She has not taken anything for the pain except for 1000 mg of Tylenol and a pillow over her abdomen. Last dose of Tylenol was 7-1/2 hours ago. She is not having any bleeding, dysuria, discharge or dyspareunia. She follows with Dr. Romano for OB. Her next appointment is in April however her is working on [place] and she thinks she will be moving to [place] but she does not know where. She has not established care in [place] yet. She is not on vitamins. She had a bowel movement yesterday normal. Eating and drinking normally. She says she had uneventful first . . Patient also complains of some pain and tingling and swelling in her right forearm. She is right-handed and has a history of carpal tunnel syndrome. She says it is worse when she got . Allergies and Home Medications Allergies Coded Allergies: No Known Drug Allergies (Unverified , 01/03/21) Patient Home Medication List Home Medication List Reviewed: Yes Cephalexin (Cephalexin) 500 Mg Tablet, 500 MG PO TID Prescribed by: CHARY YI on 03/13/21 1418 Metoclopramide HCl (Reglan) 10 Mg Tablet, 10 MG PO TID PRN for NAUSEA-1ST LINE Prescribed by: DEREJE CORONEL on 03/25/21 221 Omeprazole (Omeprazole) 40 Mg Capsule., 40 MG PO DAILY Prescribed by: ANTON GERMAIN on 01/03/21 1617 Ondansetron (Ondansetron Odt) 4 Mg Tab.rapdis, 4 MG PO Q6H PRN for NAUSEA/VOMITING Prescribed by: ANTON GERMAIN on 01/03/211616 Sucralfate (Carafate) 1 Gm Tablet, 1 GM PO QIDACHS Prescribed by: ANTON GERMAIN on 01/03/211616 Review of Systems Review of Systems Constitutional: No chills, No diaphoresis EENTM: No Blurred Vision, No Double Vision Respiratory: Denies Cough, Denies Shortness of Air Cardiovascular: Denies Chest Pain, Denies Edema Gastrointestinal: Denies Abdomen Distended; Abdominal Pain; Denies Constipated, Denies Diarrhea, Denies Nausea, Denies Poor Fluid Intake Genitourinary: Denies Discharge, Denies Drainage Musculoskeletal: No back pain, No joint pain Skin: No change in color, No pruritus, No rash Psychiatric/Neurological: Denies Headache, Denies Numbness All Other Systems Reviewed Negative Unless Noted: Yes Past Mdsuhpr-Pdfkuj-Oisjqe Hx Patient Social History Tobacco Use?: No Use of E-Cig and/or Vaping dev: No Substance use?: No Immunizations Up To Date First/Initial COVID19 Vaccinat: N/A Past Medical History Neurological: Yes Headaches /Migraines Physical Exam Vital Signs Vital Signs - First Documented 04/05/21 02:21 Temp 36.4 Pulse 74 Resp 16 B/P (MAP) 118/67 (84) Pulse Ox 100 O2 Delivery Room Air Capillary Refill : Height/Weight/BMI Height: '" Weight: lbs. oz. kg; 22.00 BMI Method: General Appearance: WD/WN, no apparent distress HEENT: PERRL/EOMI, normal ENT inspection, pharynx normal Neck: full range of motion, supple Respiratory: lungs clear, normal breath sounds, no respiratory distress, no accessory muscle use Cardiovascular: normal peripheral pulses, regular rate, rhythm Peripheral Pulses: 2+ Radial Pulses (R), 2+ Radial Pulses (L) Gastrointestinal: normal bowel sounds, soft, no organomegaly, tenderness (Mild epigastric tenderness to palpation) Extremities: normal inspection, normal capillary refill Neurologic/Psychiatric: alert, normal mood/affect, oriented x 3 Skin: normal color, warm/dry Progress/Results/Core Measures Results/Orders Lab Results Laboratory Tests Test 04/05/21 02:32 04/05/21 03:00 Range/Units Urine Color YELLOW Urine Clarity CLEAR Urine pH 6.0 5-9 Urine Specific [place] >=1.030 1.016-1.022 Urine Protein TRACE H NEGATIVE Urine Glucose (UA) NEGATIVE NEGATIVE Urine Ketones 3+ H NEGATIVE Urine Nitrite NEGATIVE NEGATIVE Urine Bilirubin 1+ H NEGATIVE Urine Urobilinogen 1.0 < = 1.0 MG/DL Urine Leukocyte Esterase 1+ H NEGATIVE Urine RBC (Auto) NEGATIVE NEGATIVE Urine RBC NONE /HPF Urine WBC 2-5 /HPF Urine Squamous Epithelial Cells 25-50 H /HPF Urine Crystals NONE /LPF Urine Bacteria TRACE /HPF Urine Casts NONE /LPF Urine Mucus LARGE H /LPF Urine Culture Indicated NO White Blood Count 7.9 4.3-11.0 10^3/uL Red Blood Count 4.69 3.80-5.11 10^6/uL Hemoglobin 11.8 11.5-16.0 g/dL Hematocrit 37 35-52 % Mean Corpuscular Volume 79 L 80-99 fL Mean Corpuscular Hemoglobin 25 25-34 pg Mean Corpuscular Hemoglobin Concent 32 32-36 g/dL Red Cell Distribution Width 15.4 H 10.0-14.5 % Platelet Count 279 130-400 10^3/uL Mean Platelet Volume 11.9 9.0-12.2 fL Immature Granulocyte % (Auto) 0 % Neutrophils (%) (Auto) 75 42-75 % Lymphocytes (%) (Auto) 18 12-44 % Monocytes (%) (Auto) 6 0-12 % Eosinophils (%) (Auto) 1 0-10 % Basophils (%) (Auto) 0 0-10 % Neutrophils # (Auto) 5.9 1.8-7.8 10^3/uL Lymphocytes # (Auto) 1.4 1.0-4.0 10^3/uL Monocytes # (Auto) 0.5 0.0-1.0 10^3/uL Eosinophils # (Auto) 0.1 0.0-0.3 10^3/uL Basophils # (Auto) 0.0 0.0-0.1 10^3/uL Immature Granulocyte # (Auto) 0.0 0.0-0.1 10^3/uL Sodium Level 136 135-145 MMOL/L Potassium Level 3.5 L 3.6-5.0 MMOL/L Chloride Level 104 98-107 MMOL/L Carbon Dioxide Level 19 L 21-32 MMOL/L Anion Gap 13 5-14 MMOL/L Blood Urea Nitrogen 4 L 7-18 MG/DL Creatinine 0.63 0.60-1.30 MG/DL Estimat Glomerular Filtration Rate 117 BUN/Creatinine Ratio 6 Glucose Level 98 70-105 MG/DL Calcium Level 9.4 8.5-10.1 MG/DL C-Reactive Protein High Sensitivity 0.23 0.00-0.50 MG/DL My Orders Orders - ANTON GERMAIN Lidocaine 2% Viscous 15 Ml (Xylocaine Vi (04/05/21 02:30) Famotidine Tablet (Pepcid Tablet) (04/05/21 02:29) Antacid Suspension (Mylanta Suspension (04/05/21 02:30) Ua Culture If Indicated (04/05/21 02:29) Urine Bedside (04/05/21 02:29) Cbc With Automated Diff (04/05/21 02:36) Basic Metabolic Panel (04/05/21 02:36) Hs C Reactive Protein (04/05/21 02:36) Medications Given in ED Vital Signs/I&O 04/05/21 04/05/21 02:21 04:08 Temp 36.4 Pulse 74 63 Resp 16 B/P (MAP) 118/67 (84) 101/70 Pulse Ox 100 95 O2 Delivery Room Air Room Air Progress Progress Note #1: Time: 02:34 Progress Note Patient has aseptic vital signs, calm demeanor and mildly tender to palpation epigastric region. We will give her a GI cocktail and see if that helps for GERD. She has a nonsurgical abdominal exam without any mesenteric signs. She has a known intrauterine gestation on a ultrasound from 11 days prior. She can take Tylenol again in 30 minutes. Progress Note #2: Time: 03:08 Progress Note Urine is positive. Labs are still pending. Urinalysis is unremarkable clinically. We will put her in a cock-up splint to sleep and encourage her to use ice and Tylenol. Departure Impression Primary Impression: Abdominal pain during in first trimester Additional Impressions: Cubital tunnel syndrome on right Carpal tunnel syndrome during Disposition: 01 HOME, SELF-CARE Condition: Stable Departure-Patient Inst. Decision time for Depature: 03:58 Referrals: STEPHANIE ROMANO DO Patient Instructions: Stomach Pain in Early Add. Discharge Instructions: Follow-up with an OB provider. If you find that you are leaving the state and as soon as you find out where you should call ahead and start working on establishing care with the OB provider. Tylenol 1000 mg every 8 hours as necessary for pain. Warm heating pads can sometimes be helpful for pain. Rolaids, Tums, Maalox or other similar antiacids as necessary for pain in your upper abdomen. Wear the splint especially to sleep but you may wear it all day if you wish. ANTON GERMAIN Apr 05, 2021 02:36
[2021-04-05 02:39] LABS: CLARITY,URINE CLEAR; COLOR,URINE YELLOW; GLUCOSE, URINE (UA) NEGATIVE (NEGATIVE); KETONES,URINE 3+ (NEGATIVE); LEUKOCYTE ESTERASE ,URINE 1+ (NEGATIVE); NITRITE,URINE NEGATIVE (NEGATIVE); PROTEIN,URINE TRACE (NEGATIVE)
[2021-04-05 02:47] LABS: BILIRUBIN,URINE 1+ (NEGATIVE)
[2021-04-05 02:48] LABS: BACTERIA,URINE TRACE /HPF; SQUAMOUS EPITHELIAL CELL,UR 25-50 /HPF
[2021-04-05 03:09] LABS: BASOPHILS % (AUTO) 0 % (0-10); EOSINOPHILS # (AUTO) 0.1 10^3/uL (0.0-0.3); EOSINOPHILS % (AUTO) 1 % (0-10); HEMATOCRIT 37 % (35-52); HEMOGLOBIN 11.8 g/dL (11.5-16.0); LYMPHOCYTES # (AUTO) 1.4 10^3/uL (1.0-4.0); LYMPHOCYTES % (AUTO) 18 % (12-44); MEAN CORPUSCULAR HEMOGLOBIN 25 pg (25-34); MEAN CORPUSCULAR HGB CONC 32 g/dL (32-36); MEAN CORPUSCULAR VOLUME 79 fL (80-99); MEAN PLATELET VOLUME 11.9 fL (9.0-12.2); MONOCYTES # (AUTO) 0.5 10^3/uL (0.0-1.0); MONOCYTES % (AUTO) 6 % (0-12); NEUTROPHILS # (AUTO) 5.9 10^3/uL (1.8-7.8); NEUTROPHILS % (AUTO) 75 % (42-75); PLATELET COUNT 279 10^3/uL (130-400); WHITE BLOOD COUNT 7.9 10^3/uL (4.3-11.0)
[2021-04-05 03:18] LABS: POTASSIUM 3.5 MMOL/L (3.6-5.0)
[2021-04-05 03:20] LABS: CALCIUM 9.4 MG/DL (8.5-10.1)
[2021-04-05 03:24] LABS: CREATININE SERUM 0.63 MG/DL (0.60-1.30)
[2021-04-05 04:08] VITALS: BP 101/70
== END 2021-04-05 04:08 | disposition home or self-care (01) ==
LOC: EDUNIT# 02:18 → ER 02:19
DX: O26.891 Other specified pregnancy related conditions, first trimester (principal); R10.13 Epigastric pain; G56.01 Carpal tunnel syndrome, right upper limb; G56.21 Lesion of ulnar nerve, right upper limb; Z3A.10 10 weeks gestation of pregnancy
CPT/HCPCS: 36415; 80048; 81000; 84703; 85025; 86141